=== PATIENT | male | born 1955 | race Two or more races ===

== ENCOUNTER 2018-11-18 14:39 | Inpatient (IN) | payer OTHER ==
[~2018-11-18] VITALS: Ht 162.6 cm; Wt 63.7 kg
[~2018-11-18 14:39] MED LIST: CANNOT RECALL
--- NOTE | 2018-11-18 15:15 | NUR ---
CALLED [facility] AND SPOKE WITH VANI. RECOMENTATIONS GIVEN TO INCREASE FLUIDS, ANTIEMETICS AND MONITOR FOR SIGNS FOR ESOPHAGEAL DAMAGE. DR GILLESPIE NOTIFIED OF INFORMATION
--- NOTE | 2018-11-18 15:33 | NUR ---
PT PRESENTS WITH ED WITH NAUSEA, VOMITING AND DIARRHEA SINCE 0 AFTER ACCIDENTAL INGESTION OF A CLEANING AGENT CALLED FLOW-QUAT. PT VERBALIZED X 15 EPISODES OF DIARRHEA AND 30 EPISODES OF VOMITING. PT IS ALERT AND ORIENTED AND ABLE TO COMMUNICATE NEEDS. SITTING QUIETLY AT BEDSIDE. NAD RESPIRATIONS E/U. WILL CONTINUE TO MONTIOR AND AWAIT MD GOODEN
--- NOTE | 2018-11-18 16:05 | NUR ---
EKG IN PROGRESS.
--- NOTE | 2018-11-18 16:17 | NUR ---
RESIDENT AT BEDSIDE FOR EVAL.
[2018-11-18 16:18] LABS: BASOPHIL % 0.3 % (0-2); PLATELET COUNT 221 x10^3mcL (130-400); RED CELL DISTRIBUTION WIDTH 13.2 % (11.5-14.5)
--- NOTE | 2018-11-18 16:23 | NUR ---
FLUIDS STARTED AND MEDICATION GIVEN ORDERED. NAD, RESPIRATIONS E/U ADMITING MD AT BEDSIDE TO DISCUSS PLAN OF CARE
[2018-11-18 16:26] LABS: CALCIUM 9.5 mg/dL (8.5-10.1); CARBON DIOXIDE 26.7 mmol/L (21-32); CHLORIDE SERUM 102 mmol/L (98-107); CREATININE SERUM 0.9 mg/dL (0.7-1.3); GFR1 > 60 mL/min; GLUCOSE SERUM 106 mg/dL (74-106); SODIUM SERUM 139 mmol/L (136-145)
[2018-11-18 16:31] LABS: ALBUMIN 4.5 g/dL (3.4-5.0); ALKALINE PHOSPHATASE 86 U/L (46-116); ALT/SGPT 48 U/L (16-63); AST/SGOT 33 U/L (15-37); BILIRUBIN TOTAL 0.6 mg/dL (0.20-1.00); LIPASE 149 IU/L (73-393)
[2018-11-18 16:32] LABS: TOTAL PROTEIN, SERUM 8.5 g/dL (6.4-8.2)
[2018-11-18 16:54] LABS: MAGNESIUM 2.2 mg/dL (1.8-2.4); PHOSPHOROUS 3.8 mg/dL (2.5-4.9)
[2018-11-18 17:01] LABS: FREE T4 0.9 ng/dL (0.76-1.46); FREE THYROXINE INDEX 2.9 ug/dL (1.4-4.5); T4(THYROXINE) 8.7 ug/dL (4.7-13.3)
[2018-11-18 17:06] LABS: CHOLESTEROL/HDL RATIO 6.4
[2018-11-18 17:10] LABS: T3 TOTAL 1.14 ng/mL
--- NOTE | 2018-11-18 17:11 | NUR ---
REPORT GIVEN TO OFELIA MARCOS TO ASSUME CARE OF PT. PT IS ALERT AND ORIENTED, NAD RESPIRATIONS E/U. PT IS ABLE TO COMMUNICATE NEEDS. AMBULATORY WITH A STEADY GAIT. PT TAKEN TO MED/SUG IN WHEELCHAIR BY EMT. ALL BELONGINGS SENT
[2018-11-18 17:12] LABS: UA SPECIFIC GRAVITY >=1.030 (1.005-1.035); microscopic required? YES; urine erythrocyte 1+ (NEGATIVE)
--- NOTE | 2018-11-18 17:15 | NUR ---
RECEIVED PT FROM ED VIA [facility], CAME IN DUE TO NAUSEA, VOMITING AND DAIRRHEA AFTER INGESTING A CHEMICAL "FLOW-QUAT". AAOX4. DENIES HEADACHE/DIZZINESS. ABLE TO FOLLOW COMMANDS. NO HOARSE VOICE NOTED. STATED THAT HIS THROAT FEELS SWOLLEN, TIGHT AND BURNING. NO SOB NOTED, LUNG SOUNDS CTA. DENIES CHEST PAIN/PRESSURE, SR ON THE MONITOR. C/O 8/10 THROAT AND MID ABDOMINAL PAIN DESCRIBED BURNING AND IRRITATED. C/O MILD NAUSEA. STATED THAT HE HAD 3 EPISODES OF VOMITING AND 8-10 EPISODES OF DIARRHEA EDGER TAILER. IV SITE ON THE RIGHT HAND IS PATENT AND INTACT. SIDE RAILS UPX2. CALL LIGHT ON REACH. ENDORSED TO PRIMARY NURSE MARELNI FOR CONTINUITY OF CARE
[2018-11-18 17:29] VITALS: BP 155/96
[2018-11-18 17:31] LABS: AMPHETAMINE QUAL UR NONE DETECTED (See below)
[2018-11-18 17:32] VITALS: Ht 162.6 cm; Wt 63.7 kg
--- NOTE | 2018-11-18 17:52 | NUR ---
PT'S DAUGHTER CALLI CALLED REQUESTED BY PT AND NOTIFIED THAT PT HAD BEEN ADMITTED TO THE HOSPITAL. MADE AWARE OF VISITING HRS AND STATED SHE WILL COME SEE HER FATHER. PT MADE AWARE.
--- NOTE | 2018-11-18 17:55 | NUR ---
PT C/O MOD DISCOMFORT TO THROAT WORSENING WITH SWALLOWING. DR. SALCEDO PAGED TO REQUEST MEDICATION FOR PAIN NONE ORAL SINCE PT UNABLE TO SWALLOW AT THIS TIME.
--- NOTE | 2018-11-18 18:30 | NUR ---
DR. SALCEDO PAGED AGAIN REGARDING PAIN MEDS. PER PHARMACY PT ALLERGIC TO IBUPROFEN CAN'T TAKE TORADOL. AWAITING MD CALL BACK.
--- NOTE | 2018-11-18 18:30 | NUR ---
RECEIVED A CALL FROM [facility] FROM [facility] UPDATED ON PT'S CONDITION AND C/O DISCOMFORT TO THROAT WHEN SWALLOWING. PER [facility] THEY RECOMMEND FOR PT TO HAVE GI CONSULT AND EGD. DR. MATIAS MINOR.
--- NOTE | 2018-11-18 19:00 | NUR ---
NO CALL BACK FROM DR. SALCEDO ENDORSE TO CHARGE NURSE TO F/U WITH NIGHT TEAM RESIDENT.
--- NOTE | 2018-11-18 19:39 | NUR ---
RECEIVED PT FROM DAY SHIFT RN. PT AAOX4. DENIES ANY PAIN AT THIS TIME. TELE #22 ST 102, DENIES ANY CHEST PAIN OR PRESSURE. BREATHING EVEN AND UNLABORED, CTA ON RA W/ NO SIGNS OF RESP DISTRESS NOTED. IV RIGHT HAND PATENT, INFUSING WELL. CALL BUTTON WITHIN REACH. WILL CONTINUE TO MONITOR.
[2018-11-18 20:14] VITALS: BP 137/81
--- NOTE | 2018-11-18 23:38 | NUR ---
RECEIVED A CALL FROM [facility] FOR AN UPDATE ON THE PT CONDITION STATE HE WILL CALL BACK TOMORROW TO CHECK ON PT STATUS.
--- NOTE | 2018-11-18 23:44 | NUR ---
PT REPORTED HAVING PAIN, MEDICATED PER EMAR. WILL CONTINUE TO MONITOR.
--- NOTE | 2018-11-19 01:03 | NUR ---
PT IS ASLEEP AT THIS TIME, NO SIGNS OF DISTRESS NOTED. IV PATENT, INFUSING WELL. WILL CONTINUE TO MONITOR.
--- NOTE | 2018-11-19 03:17 | NUR ---
ROUNDS MADE. PT IS ASLEEP. BREATHING EVEN AND UNLABORED. NO SIGNS OF DISTRESS NOTED. WILL CONTINUE TO MONITOR.
[2018-11-19 05:18] VITALS: BP 120/67
--- NOTE | 2018-11-19 06:06 | NUR ---
PT IS AOX4. DENIES ANY HEADACHE OR DIZZINESS NOR PAIN AT THIS TIME. PT STATES HE STILL FEELS A BURNING SENSATION ON HIS THROAT. PATIENT SLEPT MOST OF THE NIGHT WITH NO SIGNS OF DISTRESS NOTED. IV PATENT AND INFUSING WELL. MEDICATED PER EMAR. PT NPO SINCE MIDNIGHT PER ORDER. WILL CONTNUE TO MONITOR AND ENDORSE CARE TO DAY SHIFT RN.
[2018-11-19 07:14] LABS: BASOPHIL % 0.2 % (0-2); PLATELET COUNT 191 x10^3mcL (130-400); RED CELL DISTRIBUTION WIDTH 13.5 % (11.5-14.5)
--- NOTE | 2018-11-19 07:24 | NUR ---
PT AWAKE IN BED, NO SIGNS OF DISTRESS NOTED. IV PATENT AND INFUSING WELL. SAFETY PRECAUTIONS IN PLACE. ENDORSED CARE TO DAY SHIFT RN, ALL QUESTIONS ADDRESSED.
--- NOTE | 2018-11-19 07:30 | NUR ---
RECEIVED PT FROM NIGHT NURSE. PT SITTING UP IN BED. LOOKS TO BE IN NO ACUTE DISTRESS AT THIS TIME. COMPLAINS OF THROAT SOARNESS. IV SITE INTACT WITH NO SIGNS OF REDNESS OR SWELLING. CALL LIGHT WITHIN REACH. WILL CONTINUE TO MONTIOR.
[2018-11-19 08:11] LABS: CALCIUM 8.5 mg/dL (8.5-10.1); CARBON DIOXIDE 27.9 mmol/L (21-32); CHLORIDE SERUM 108 mmol/L (98-107); CREATININE SERUM 0.8 mg/dL (0.7-1.3); GFR1 > 60 mL/min; GLUCOSE SERUM 94 mg/dL (74-106); SODIUM SERUM 142 mmol/L (136-145)
[2018-11-19 08:48] VITALS: BP 119/71
--- NOTE | 2018-11-19 10:10 | NUR ---
PT TAKEN TO GI LAB. PT TAKEN OFF [employer] MADE AWARE
[2018-11-19 11:45] VITALS: BP 104/61
--- NOTE | 2018-11-19 11:45 | NUR ---
PT BACK [facility] S/O EGD. PT A/A/OX4, RESP EVEN AND UNLABORED. NO SOB NOTED OR REPORTED. RECONNECTED IVF ORDERED AND NOTIFIED MARKER ASSEMBLER TO TAKE PT OFF STANDBY. VSS. CALL LIGHT IN REACH NEEDS ATTENDED TO.
[2018-11-19 12:48] VITALS: BP 103/65
--- NOTE | 2018-11-19 13:14 | NUR ---
PT REQUESTING MEAL. PAGED DR. SALCEDO, AWAITING DR. LOBO.
[2018-11-19] MEDS ORDERED: [UNRECOGNIZED DRUG - OTHER] MM (14:10)
[2018-11-19] MEDS ORDERED: PROTONIX40 MG PO (14:12)
[2018-11-19] MEDS ORDERED: MP PO (14:12)
[2018-11-19] MEDS ORDERED: AMOXICILLIN500 MG PO (14:12)
[2018-11-19 14:25] VITALS: BP 103/65
[2018-11-19 14:30] VITALS: BP 105/61
--- NOTE | 2018-11-19 15:33 | NUR ---
PT DC ORDERED SIGNED BY . MELANIE MADE AWRE OF DC ORDERS. PT STATED WILL BE UNABLE TO LEAVE UNTIL DAUGHTER RETURNS FROM WORK LATER TONIGHT. WILL CONTINUE TO MONITOR.
--- NOTE | 2018-11-19 19:10 | NUR ---
PT PROVIDED WITH D/C HOME INSTRUCTIONS GIVEN MEDICATION/PRESCRIPTION EDUCATION. INSTRUCTED TO COMPLETE ATB AND MEDICAL TX ORDERED. PT TO SCHEDULE F/U APPT WITH PCP WITH IN 3-5 DAYS. INSTRUCTED ON FULL LIQUID DIET AND ADVANCE SLOWLY TOLERATED. PT VERBALIZED UNDERSTANDING OF INSTRUCTIONS. PT TO AWAIT DAUGHTER ARRIVAL FOR DISCHARGE AFTER 1999. ONCOMING NURSE TO D/C TELE AND IV.
--- NOTE | 2018-11-19 20:15 | NUR ---
PT DAUGHTER HERE TO TAKE PT HOME VIA PRIVATE VEHICLE. ALL BELONGINGS WITH PT. VSS. PT DENIES PAIN. NO S/S ACUTE DISTRESS. TELE #22 REMOVED. IV TO L HAND DISCONTINUED, CATHETER INTACT. PT TOLERATED WELL. WILL HAVE DHARMESH RICHARDSON ESCORT PT AND FAMILY OUT.
== END 2018-11-19 20:20 | disposition home or self-care (01) | DRG 917 ==
LOC: ED 14:39 → DU 16:17 → MU 16:17 → DU 11-19 04:58
PROVIDERS: Emergency Medicine; Internal Medicine; ADMIT Family Medicine
PROC: 0DB78ZX Excision of Stomach, Pylorus, Via Natural or Artificial Opening Endoscopic, Diagnostic (ICD-10-PCS; principal; 2018-11-19 10:45)
DX: T65.891A Toxic effect of other specified substances, accidental (unintentional), initial encounter (principal); N17.0 Acute kidney failure with tubular necrosis; K22.10 Ulcer of esophagus without bleeding; T50.991A Poisoning by other drugs, medicaments and biological substances, accidental (unintentional), initial encounter; E78.5 Hyperlipidemia, unspecified; D72.829 Elevated white blood cell count, unspecified; Y92.89 Other specified places as the place of occurrence of the external cause
CPT/HCPCS: 43235; 83880; 84439; C9113; J1200; J1610; J2250; J2270; J2310; J2405; J3010; J3490; J7030; Q0092